=== PATIENT | female | born 1955 | race African-American/Black ===

== ENCOUNTER 2023-04-14 14:38 | Emergency (ER) | payer MEDICARE, MEDICAID ==
[~2023-04-14] VITALS: Ht 165.1 cm; Wt 83.0 kg
[2023-04-14 14:46] VITALS: TEMP 98.4
[2023-04-14 16:35] LABS: APPEARANCE,URINE HAZY (CLEAR); BILIRUBIN,URINE NEGATIVE (NEGATIVE); COLOR,URINE YELLOW (YELLOW); GLUCOSE, URINE (UA) NEGATIVE (NEGATIVE); KETONES,URINE NEGATIVE (NEGATIVE); LEUKOCYTE ESTERASE ,URINE NEGATIVE (NEGATIVE); NITRATE,URINE NEGATIVE (NEGATIVE); OCCULT BLOOD,URINE NEGATIVE (NEGATIVE); PROTEIN,URINE NEGATIVE (NEGATIVE); SPECIFIC GRAVITIY, URINE 1.018 (1.003-1.030); UROBILINOGEN,URINE <=1.0 mg/dL (<=1.0)
[2023-04-14 16:55] VITALS: BP 121/73; PULSE 74; RESP 16
== END 2023-04-14 17:20 | disposition home or self-care (01) ==
LOC: EMS 14:42
DX: Z11.3 Encounter for screening for infections with a predominantly sexual mode of transmission (principal); Z90.79 Acquired absence of other genital organ(s); Z88.5 Allergy status to narcotic agent
CPT/HCPCS: 81003; 99283